=== PATIENT | female | born 1990 | race Caucasian/White ===

== ENCOUNTER 2017-01-12 22:35 | Emergency (ER) | payer MEDICAID ==
[~2017-01-12] VITALS: Ht 152.4 cm; Wt 65.3 kg
[2017-01-12 22:46] VITALS: BP 115/67
--- NOTE | 2017-01-12 23:00 | NUR ---
PT TAKEN TO OF
--- NOTE | 2017-01-12 23:07 | NUR ---
Ray tejada in [facility] - 01/12/17 at 2318 by CHASIDY PT DENNIS MORRIS
--- NOTE | 2017-01-12 23:07 | NUR ---
PT TAKEN TO XRAY
--- NOTE | 2017-01-12 23:18 | NUR ---
PT RETURN FROM XRAY
--- NOTE | 2017-01-12 23:21 | NUR ---
PT MOVED TO BED 5
--- NOTE | 2017-01-12 23:25 | NUR ---
Dr. Tovar evaluating patient at bedside.
--- NOTE | 2017-01-12 23:29 | NUR ---
PATIENT PRESENTS TO ED WITH C/O RT FOOT PAIN. STEPPED ON NAIL. PT DENIES N/V/D; SKIN IS PINK/WARM/DRY; AAOX4 WITH EVEN AND STEADY GAIT; LUNGS CLEAR BL; HR EVEN AND REGULAR; PT DENIES ANY FEVER, CP, SOB, OR COUGH AT THIS TIME; PATIENT STATES PAIN OF 10/10 AT THIS TIME; VSS; PATIENT POSITIONED FOR COMFORT; HOB ELEVATED; BEDRAILS UP X2; BED DOWN. ER MD MADE AWARE OF PT STATUS.
[2017-01-12] MEDS ORDERED: HYDROcodone/APAP 5/325 MG 1 TAB TAB PO ONE (23:35)
[2017-01-13 00:16] VITALS: BP 115/67
--- NOTE | 2017-01-13 00:16 | NUR ---
Patient discharged with v/s stable. Written and verbal after care instructions given and explained. Patient alert, oriented and verbalized understanding of instructions. Ambulatory with steady gait. All questions addressed prior to discharge. ID band removed. Patient advised to follow up with PMD. Rx of KEFLEX AND NAPROSYN given. Patient educated on indication of medication including possible reaction and side effects. Opportunity to ask questions provided and answered.
== END 2017-01-13 00:16 | disposition home or self-care (01) ==
LOC: MED 22:35
DX: S91.331A Puncture wound without foreign body, right foot, initial encounter (principal); W45.0XXA Nail entering through skin, initial encounter; Y93.9 Activity, unspecified; Y92.89 Other specified places as the place of occurrence of the external cause; Y99.8 Other external cause status